=== PATIENT | female | born 1960 | race Caucasian/White ===

== ENCOUNTER 2019-04-16 13:21 | Emergency (ER) | payer OTHER ==
[~2019-04-16] VITALS: Ht 167.6 cm; Wt 70.3 kg
[~2019-04-16 13:21] MED LIST: AZITHROMYCIN500 MG; CLARINEX5 MG/TAB PO; CLARITIN10 MG PO; ETHAMBUTOL HCL400 MG; FLONASE16 G1 NS; INTESTINEX1 CAP PO; LEVAQUIN500 MG PO; OSEL75CA; PHENERGAN25 MG PO; RIFAMPIN300 MG; WELLBUTRIN SR150 MG; WELLBUTRIN XL300 MG
== END 2019-04-16 20:55 | disposition home or self-care (01) ==
LOC: ER 13:21
DX: S93.401A Sprain of unspecified ligament of right ankle, initial encounter (principal); X50.3XXA Overexertion from repetitive movements, initial encounter; Y93.89 Activity, other specified; Y92.89 Other specified places as the place of occurrence of the external cause; Y99.8 Other external cause status

== ENCOUNTER → 2019-06-01 | Outpatient (CLI) | payer OTHER | END | disposition home or self-care (01) | LOC: NUCLEAR 13:30 | DX: M81.0 Age-related osteoporosis without current pathological fracture (principal) ==

== ENCOUNTER → 2019-07-24 11:17 | Outpatient (CLI) | payer OTHER | END | disposition home or self-care (01) | LOC: LAB 11:17 | DX: E55.0 Rickets, active (principal); M85.88 Other specified disorders of bone density and structure, other site; E56.1 Deficiency of vitamin K ==

== ENCOUNTER 2021-09-04 11:02 | Outpatient (CLI) | payer OTHER | END 2021-09-04 11:10 | disposition home or self-care (01) | LOC: MRI 11:02 | PROVIDERS: ATTEND Specialist | DX: M62.830 Muscle spasm of back (principal); G93.89 Other specified disorders of brain; G31.84 Mild cognitive impairment of uncertain or unknown etiology; M54.2 Cervicalgia | CPT/HCPCS: 70551 ==

== ENCOUNTER 2022-07-18 09:24 | Outpatient (CLI) | payer OTHER | END 2022-07-18 09:26 | disposition home or self-care (01) | LOC: RAD 09:24 | DX: M79.642 Pain in left hand (principal) ==

== ENCOUNTER 2023-04-09 11:54 | Outpatient (CLI) | payer OTHER | END 2023-04-09 13:41 | disposition home or self-care (01) | LOC: RAD 11:54 | PROVIDERS: ATTEND Orthopaedic Surgery | DX: M54.59 Other low back pain (principal); M95.5 Acquired deformity of pelvis ==

== ENCOUNTER → 2023-09-11 12:32 | Outpatient (CLI) | payer OTHER | END | disposition home or self-care (01) | LOC: LAB 12:32 | PROVIDERS: ATTEND Obstetrics & Gynecology | DX: R10.2 Pelvic and perineal pain (principal); N83.9 Noninflammatory disorder of ovary, fallopian tube and broad ligament, unspecified ==

== ENCOUNTER 2023-11-14 09:37 | Outpatient (CLI) | payer OTHER | END 2023-11-14 09:58 | disposition home or self-care (01) | LOC: TOM 09:37 | PROVIDERS: ATTEND Internal Medicine Pulmonary Disease | DX: J47.1 Bronchiectasis with (acute) exacerbation (principal); R06.02 Shortness of breath; R91.8 Other nonspecific abnormal finding of lung field ==

== ENCOUNTER 2023-11-16 12:55 | Outpatient (CLI) | payer OTHER | END 2023-11-16 14:50 | disposition home or self-care (01) | LOC: LAB 12:55 | PROVIDERS: ATTEND Internal Medicine Pulmonary Disease | DX: J47.1 Bronchiectasis with (acute) exacerbation (principal); J15.9 Unspecified bacterial pneumonia; A15.0 Tuberculosis of lung ==

== ENCOUNTER 2023-11-18 10:33 | Outpatient (CLI) | payer OTHER ==
[2023-11-18 12:14] LABS: HEMATOCRIT 37.5 % (36.0-45.00); HEMOGLOBIN 12.1 g/dL (12.0-15.00); MEAN CORPUSCULAR HEMOGLOBIN 27.5 pg (27.00-32.0); MEAN CORPUSCULAR HGB CONC 32.3 g/dl (32.0-36.0); PLATELET COUNT 332 K/uL (150-450); RED BLOOD COUNT 4.41 M/uL (4.00-6.00); RED CELL DISTRIBUTION WIDTH 14.8 % (11.5-14.5)
[2023-11-18 13:00] LABS: ALBUMIN 3.1 gm/dL (3.4-5.0); BILIRUBIN TOTAL 0.33 mg/dL (0.3-1.2); CREATININE SERUM 0.76 mg/dL (0.55-1.02); GFR 76.62; GLOBULINA 3.3 G/DL (2.4-3.5); POTASSIUM 4.5 mEq/L (3.5-5.1); TOTAL PROTEIN 6.4 gm/dL (6.4-8.2)
== END 2023-11-18 10:34 | disposition home or self-care (01) ==
LOC: LAB 10:33
PROVIDERS: ATTEND Internal Medicine Pulmonary Disease
DX: J47.1 Bronchiectasis with (acute) exacerbation (principal); D64.9 Anemia, unspecified; D83.9 Common variable immunodeficiency, unspecified

== ENCOUNTER → 2023-11-19 10:11 | Outpatient (CLI) | payer OTHER | END | disposition home or self-care (01) | LOC: LAB 10:11 | PROVIDERS: ATTEND Internal Medicine Pulmonary Disease | DX: J47.1 Bronchiectasis with (acute) exacerbation (principal); J15.9 Unspecified bacterial pneumonia; A15.0 Tuberculosis of lung ==

== ENCOUNTER 2023-11-21 13:04 | Outpatient (CLI) | payer OTHER | END 2023-11-21 14:46 | disposition home or self-care (01) | LOC: LAB 13:04 | PROVIDERS: ATTEND Internal Medicine Pulmonary Disease | DX: J47.1 Bronchiectasis with (acute) exacerbation (principal); J15.9 Unspecified bacterial pneumonia; A15.0 Tuberculosis of lung ==

== ENCOUNTER 2024-01-03 14:00 | Emergency (ER) | payer OTHER ==
[~2024-01-03] VITALS: Ht 165.1 cm; Wt 69.4 kg
[2024-01-03] MEDS ORDERED: TETANUS & DIPHTHERIA TOX,ADULT 0.5 ML VIAL IM ONE (17:45)
[2024-01-03] MEDS ORDERED: CEFTRIAXONE SODIUM 1,000 MG VIAL IM ONE (17:45)
[2024-01-03 18:41] LABS: HEMATOCRIT 36.3 % (36.0-45.00); HEMOGLOBIN 11.9 g/dL (12.0-15.00); MEAN CELL VOLUME 82.9 fL (80.00-100.00); MEAN CORPUSCULAR HEMOGLOBIN 27.1 pg (27.00-32.0); MEAN CORPUSCULAR HGB CONC 32.7 g/dl (32.0-36.0); PLATELET COUNT 316 K/uL (150-450); RED BLOOD COUNT 4.38 M/uL (4.00-6.00); RED CELL DISTRIBUTION WIDTH 15.1 % (11.5-14.5)
== END 2024-01-03 21:52 | disposition home or self-care (01) ==
LOC: ER 14:01
PROVIDERS: Emergency Medicine
DX: S61.211A Laceration without foreign body of left index finger without damage to nail, initial encounter (principal); S61.218A Laceration without foreign body of other finger without damage to nail, initial encounter; W55.01XA Bitten by cat, initial encounter; Y93.9 Activity, unspecified; Y92.9 Unspecified place or not applicable; Y99.9 Unspecified external cause status

== ENCOUNTER → 2024-07-23 | Emergency (ER) | payer OTHER ==
[~2024-07-23] VITALS: Ht 165.1 cm; Wt 70.3 kg
[~2024-07-23] MED LIST changes: +0.9 % SODIUM CHLORIDE 1,000 ML IV SCH; +IMITREX100 MG PO; +ONDANSETRON HCL 2 MG/ML VIAL IV STA; +SUMATRIPTAN SUCCINATE 6 MG/0.5 ML VIAL SUBCUTANEO ONE
[2024-07-23 11:21] VITALS: BP 141/74; O2SAT 98
[2024-07-23 12:37] LABS: HEMATOCRIT 37.5 % (36.0-45.00); HEMOGLOBIN 12.5 g/dL (12.0-15.00); MEAN CELL VOLUME 85.6 fL (80.00-100.00); MEAN CORPUSCULAR HEMOGLOBIN 28.5 pg (27.00-32.0); MEAN CORPUSCULAR HGB CONC 33.2 g/dl (32.0-36.0); PLATELET COUNT 237 K/uL (150-450); RED BLOOD COUNT 4.38 M/uL (4.00-6.00); RED CELL DISTRIBUTION WIDTH 15.1 % (11.5-14.5)
[2024-07-23 13:15] LABS: CALCIUM 9.1 mg/dL (8.5-10.1); CREATININE SERUM 0.53 mg/dL (0.55-1.02); GFR 115.77; POTASSIUM 4.17 mEq/L (3.5-5.1)
== END | disposition home or self-care (01) ==
LOC: ER 10:56
PROVIDERS: Emergency Medicine
DX: G43.509 Persistent migraine aura without cerebral infarction, not intractable, without status migrainosus (principal)